=== PATIENT | male | born 1965 | race Caucasian/White ===

== ENCOUNTER → 2017-01-04 | Outpatient (CLI) | payer BC ==
--- NOTE | 2017-01-04 11:59 | MR ---
EXAMINATION TYPE: MR shoulder LT wo con DATE OF EXAM: 01/04/2017 10:35 AM COMPARISON: Plain film 21 December 2016 HISTORY: Left shoulder pain TECHNIQUE: Multiplanar, multisequence imaging of the left shoulder is performed without contrast. FINDINGS: Rotator Cuff: Rotator cuff is torn and retracted, supraspinatus tendon is retracted to the level of t he acromioclavicular joint. Hypertrophic changes present at the acromioclavicular joint Acromioclavicular Joint: Hypertrophic change causes mass effect on the musculotendinous junction of s upraspinatus Glenohumeral Joint: Intact Labrum: No evident tear. Biceps Tendon: Biceps tendon is perched and subluxed anteriorly and medially from the bicipital groov e, fluid signal is present along the biceps tendon. Bone marrow signal: Pseudocysts are present in the greater tuberosity Other: Fluid signal present in the subacromial subdeltoid bursa, there is no pleural effusion. IMPRESSION: Rotator cuff tear with retraction. Subluxation of the biceps tendon from the bicipital groove.
== END | disposition home or self-care (01) ==
LOC: RADMRIMAIN 09:41
PROVIDERS: ATTEND Orthopaedic Surgery
DX: S46.112A Strain of muscle, fascia and tendon of long head of biceps, left arm, initial encounter (principal); M75.102 Unspecified rotator cuff tear or rupture of left shoulder, not specified as traumatic

== ENCOUNTER → 2017-02-09 | Outpatient (CLI) | payer BC ==
[2017-02-09 10:14] LABS: EKG EKG PERFORMED
[2017-02-09 11:03] LABS: Aty Lym Flag Slight; CH 33.4; CHCM 35.3; HCT 40.8 % (39.0-53.0); HDW 2.14; HGB 13.9 gm/dL (13.0-17.5); MCH 32.4 pg (25.0-35.0); MCHC 34.1 g/dL (31.0-37.0); MCV 95.1 fL (80.0-100.0); Mean Platelet Volume 6.3; RBC 4.29 m/uL (4.30-5.90); RDW 12.4 % (11.5-15.5); WBC 6.1 k/uL (3.8-10.6); WBC (Perox) 6.45
[2017-02-09 11:13] LABS: Add Differential Manual Differential
[2017-02-09 11:16] LABS: Manual Review Performed; Nucleated Red Blood Cells 0 /100 WBC (0-0); RBC Morphology Normal; Total Cells Counted 100
[2017-02-09 11:26] LABS: Anion Gap 10 mmol/L; Carbon Dioxide 26 mmol/L (22-30); Chloride 99 mmol/L (98-107); Potassium 4.1 mmol/L (3.5-5.1); Sodium 135 mmol/L (137-145)
== END | disposition home or self-care (01) ==
LOC: LABPAT 09:59
PROVIDERS: ATTEND Orthopaedic Surgery
DX: Z01.812 Encounter for preprocedural laboratory examination (principal); M75.42 Impingement syndrome of left shoulder
CPT/HCPCS: 36415; 80051; 85025; 93005

== ENCOUNTER 2017-03-02 07:51 | Day surgery (SDC) | payer BC ==
[2017-02-24 14:35] VITALS: BMI 24.1
--- NOTE | 2017-03-02 07:49 | P.HPOR ---
History of Present Illness H&P Date: 03/02/17 Chief Complaint: 51-year-old patient seen with progressive left shoulder pain. Past Medical History Past Medical History: Hyperlipidemia, Hypertension, Osteoarthritis (OA) Additional Past Medical History / Comment(s): RIGHT INGUINAL HERNIA History of Any Multi-Drug Resistant Organisms: None Reported Past Surgical History: Heart Catheterization, Hernia Repair Additional Past Surgical History / Comment(s): LEFT INGUINAL HERNIA SURGERY Past Anesthesia/Blood Transfusion Reactions: No Reported Reaction Smoking Status: Current every day smoker - Past Family History Father Family Medical History: Cancer Mother Family Medical History: Cancer Medications and Allergies Home Medications Medication Instructions Recorded Confirmed Type Aspirin 325 mg PO DAILY 09/13/14 02/24/17 History Ezetimibe [Zetia] 10 mg PO HS 09/13/14 02/24/17 History Multivitamins, Thera [Multivitamin] 1 each PO DAILY 09/13/14 02/24/17 History Olmesartan [Benicar] 20 mg PO HS 09/13/14 02/24/17 History Rosuvastatin Calcium [Crestor] 5 mg PO HS 09/13/14 02/24/17 History traMADol HCL [Ultram] 50 mg PO Q4HR PRN 02/24/17 02/24/17 History Allergies Allergy/AdvReac Type Severity Reaction Status Date / Time nitroglycerin Allergy "CARDIAC Verified 02/24/17 14:42 ARREST " round up Allergy SEIZURE Uncoded 02/24/17 14:42 Physical Examination Osteopathic Statement: *. No significant issues noted on an osteopathic structural exam other than those noted in the History and Physical/Consult. Flexion 120, abduction 100, external rotation 40 of weakness, tenderness along the anterior lateral acromion rotator cuff insertion site. Impingement sign +90. Positive drop arm sign. Results X-ray: 12/21/2016type II anterior acromion, clavicle fracture MRI :01/04/2017retracted rotator cuff tear Assessment and Plan Plan: Assessment: Left shoulder impingement with rotator cuff tear Plan: Left shoulder arthroscopy with acromial decompression, probable arthroscopic rotator cuff repair, biceps tenotomy and debridement
[~2017-03-02 07:51] MED LIST: DEXAMETHASONE SOD PHOSPHATE 10 MG/ML 1 ML VIAL IV ONE; HYDROmorphone 1 MG/ML 1 ML SYRINGE IVP PRN; LACTATED RINGERS 1,000 ML IV SCH; ONDANSETRON 4 MG/2 ML VIAL IVP ONE; SCOPOLAMINE 1.5MG/72HR PATCH TRANSDERM ONE; ceFAZolin 1,000 MG in DEXTROSE/WATER 1 50ML.BAG IV ONE
[2017-03-02] MEDS: MIDAZOLAM 2 MG/2 ML VIAL IV PRN ×2 (08:26→08:50)
[2017-03-02] MEDS ORDERED: ROPIVACAINE 5 MG/ML 30 ML VIAL ONE (10:11)
[2017-03-02] MEDS ORDERED: LIDOCAINE 1% INJ 10MG/ML (20 ML MDV) ONE (10:11)
[2017-03-02] MEDS ORDERED: PHENYLEPHRINE-0.9% NACL SYG 1 MG/10 ML SYRINGE ONE (10:11)
[2017-03-02] MEDS ORDERED: PROPOFOL 10 MG/ML 20 ML VIAL IV ONE (10:11)
[2017-03-02] MEDS ORDERED: ROCURONIUM BROMIDE 10 MG/ML 10 ML VIAL IV ONE (10:11)
[2017-03-02] MEDS ORDERED: LIDOCAINE 2%-EPI 1:100,000 20 ML VIAL ONE (10:11)
[2017-03-02] MEDS ORDERED: SUCCINYLCHOLINE CHLORIDE 100 MG/5 ML SYR IV ONE (10:11)
[2017-03-02] MEDS ORDERED: LACTATED RINGERS 1,000 ML IV ONE (11:58)
--- NOTE | 2017-03-02 12:14 | P.OP ---
Date of Procedure: 03/02/17 Preoperative Diagnosis: Left shoulder impingement with rotator cuff tear Postoperative Diagnosis: 1. Left shoulder rotator cuff tear 2. Left shoulder impingement 3. Left shoulder acromioclavicular joint osteoarthritis 4. Left shoulder partial biceps tendon tear 5. Left shoulder superficial labral tear Procedure(s) Performed: 1. Left shoulder arthroscopic rotator cuff repair 2. Left shoulder arthroscopic subacromial decompression 3. Left shoulder arthroscopic Trevor procedure 4. Left shoulder arthroscopic biceps tenotomy 5. Left shoulder arthroscopic debridement labral tear Implants: 6-valeris peek anchors Anesthesia: GETA, regional (Shoulder block) Surgeon: Kaden Lehman Lamp Shade Maker #1: Ernesto Baltazar Estimated Blood Loss (ml): 15 Pathology: none sent Condition: stable Disposition: PACU Indications for Procedure: 51-year-old patient seen with progressive left shoulder pain. After having treatment options discussed, he elected to proceed with arthroscopy. Operative Findings: seer description of procedure Description of Procedure: Patient underwent a shoulder block by department of anesthesia. The patient was then taken to the operative suite. The patient underwent a general anesthetic by the department of anesthesia. The patient was placed into a lateral position and secured. There was appropriate padding of the bony prominence. Left shoulder was then prepped and draped in normal sterile orthopedic fashion. We placed the extremity in 10 pounds of longitudinal traction. A posterior incision was now made for a posterior working portal site. The trocar and cannula were inserted into the glenohumeral joint. Arthroscopy was initiated. Spinal needle was now inserted anteriorly, to ascertain the anterior working portal site. An incision was now made in that area, a trocar was inserted followed by a probe. There was an obvious large retracted rotator cuff tear present. There was partial tearing of the long head biceps tendon. There was superficial tearing of the anterior labrum. There were grade 1, changes of the glenoid. I performed an arthroscopic biceps tenotomy. I debrided the labral tear down to stable tissue. The residual labrum was probed and found to be stable. Instruments now removed from the glenohumeral joint. Utilizing the posterior working portal site, the trocar and cannula were inserted into the subacromial space. Arthroscopy initiated. I made an incision 2 fingerbreadths lateral to the acromion. I introduced my trocar followed by my ArthroCare ablator. I now began ablating thick subacromial bursal tissue, which exposed the undersurface of the anterior acromion. This was diminished subacromial space. There was a very prominent anterior acromion. A motorized bur was introduced and a subacromial decompression was performed. I also excised some osteophytes off the inferior aspect of the distal clavicle. The AC joint was visualized and noted to be fairly arthritic. Our motorized bur was introduced in the anterior portal site and a Trevor procedure was performed without difficulty, decompressing the AC joint nicely. I turned my attention to the rotator cuff. There was a large tear cuff tear. It measured greater than 3 cm. It was retracted but mobile over the footprint. I abraded the footprint with a motorized bur. I created 2 assessory portal sites, one off the anterior lateral acromion any other off the posterior lateral acromion. I now introduced 3 medial row anchors with 2 sutures each. I now passed all 12 limbs of suture through good bites of rotator cuff tendon. I now introduced my 3 lateral row anchors, crisscrossing the sutures and compressing the tendon along the footprint very nicely. All residual suture limbs were clipped. The repair was probed and found to be stable. I injected 1 mL of Allogen intra-articular. Instruments now removed from the portal sites. All portal sites were approximated with nylon suture. Sterile dressings were applied followed by a shoulder immobilizer. Maynor BAZZI assisted with the procedure. The patient was awakened, transferred to a bed, and taken to recovery in stable condition.
[2017-03-02 12:16] VITALS: TEMP 97.2
[2017-03-02 13:11] VITALS: RESP 18
[2017-03-02 13:56] VITALS: BP 149/80; PULSE 89
== END 2017-03-02 14:37 | disposition home or self-care (01) ==
LOC: OR 07:51
PROVIDERS: ATTEND Orthopaedic Surgery
DX: M75.102 Unspecified rotator cuff tear or rupture of left shoulder, not specified as traumatic (principal); M75.42 Impingement syndrome of left shoulder; M19.012 Primary osteoarthritis, left shoulder; S46.112A Strain of muscle, fascia and tendon of long head of biceps, left arm, initial encounter; S43.402A Unspecified sprain of left shoulder joint, initial encounter; X58.XXXA Exposure to other specified factors, initial encounter; E78.5 Hyperlipidemia, unspecified; I10 Essential (primary) hypertension; F17.200 Nicotine dependence, unspecified, uncomplicated; Z79.82 Long term (current) use of aspirin; Z79.899 Other long term (current) drug therapy; Z88.8 Allergy status to other drugs, medicaments and biological substances; Z91.048 Other nonmedicinal substance allergy status
CPT/HCPCS: 64415; 29824; 29826; 29827; C1894; C1713 ×2; C1765; J2250; J1100; J2405; J2001; J0690; J2795; J2370; J0330; J2704

== ENCOUNTER 2017-06-02 11:00 | Day surgery (SDC) | payer BC ==
[2017-05-31 11:24] VITALS: BMI 22.4
[~2017-06-02 11:00] MED LIST changes: +HEPARIN SODIUM,PORCINE 5,000 UNIT/ML 1 ML VIAL SQ ONE; +HYDROmorphone 0.5 MG/0.5 ML SYRINGE IVP PRN; -HYDROmorphone 1 MG/ML 1 ML SYRINGE IVP PRN; -LACTATED RINGERS 1,000 ML IV SCH; +MIDAZOLAM 2 MG/2 ML VIAL IV PRN; -ceFAZolin 1,000 MG in DEXTROSE/WATER 1 50ML.BAG IV ONE; +ceFAZolin 2 GM in SODIUM CHLORIDE 0.9% 100 ML IVPB ONE
[2017-06-02] MEDS ORDERED: LIDOCAINE 1% 20 ML VIAL (10MG/ML) FOR IV START INTRADERMA ONE (11:50)
[2017-06-02] MEDS: LACTATED RINGERS 1,000 ML IV SCH ×2 (11:54→12:52)
--- NOTE | 2017-06-02 12:41 | P.GSHP ---
History of Present Illness H&P Date: 06/02/17 Chief Complaint: right inguinal hernia Patient was seen in the office in February. He has complaints of a bulge in the right groin. He has a history of previous left inguinal hernia repair. Mild discomfort at times. Increasing in size. Pain does radiate to the testicle at times. He first noticed the hernia in September. Past Medical History Past Medical History: Hyperlipidemia, Hypertension, Osteoarthritis (OA) Additional Past Medical History / Comment(s): RIGHT INGUINAL HERNIA History of Any Multi-Drug Resistant Organisms: None Reported Past Surgical History: Heart Catheterization, Hernia Repair, Orthopedic Surgery Additional Past Surgical History / Comment(s): LEFT INGUINAL HERNIA SURGERY, Rt and Lt rotator cuff repair,rt knee repair ACL Past Anesthesia/Blood Transfusion Reactions: No Reported Reaction Smoking Status: Current every day smoker - Past Family History Father Family Medical History: Cancer Mother Family Medical History: Cancer Medications and Allergies Home Medications Medication Instructions Recorded Confirmed Type Aspirin 81 mg PO DAILY 09/13/14 05/31/17 History Ezetimibe [Zetia] 10 mg PO HS 09/13/14 05/31/17 History Multivitamins, Thera [Multivitamin] 1 each PO DAILY 09/13/14 05/31/17 History Olmesartan [Benicar] 20 mg PO HS 09/13/14 05/31/17 History Rosuvastatin Calcium [Crestor] 5 mg PO HS 09/13/14 05/31/17 History Allergies Allergy/AdvReac Type Severity Reaction Status Date / Time nitroglycerin Allergy "CARDIAC Verified 06/02/17 11:20 ARREST " round up Allergy SEIZURE Uncoded 06/02/17 11:20 Surgical - Exam Vital Signs Temp Pulse Resp BP Pulse Ox 99.3 F 84 18 132/76 95 06/02/17 11:26 06/02/17 11:26 06/02/17 11:26 06/02/17 11:26 06/02/17 11:26 Physical exam: General: Well-developed, well-nourished HEENT: Normocephalic, sclerae nonicteric Abdomen: Nontender, nondistended, moderate writing or hernia, no palpable left internal hernia, both testes normal Extremities: No edema Neuro: Alert and oriented Assessment and Plan (1) Inguinal hernia Narrative/Plan: Options discussed with detail to the patient. We'll proceed with laparoscopic repair writing or hernia. The da Gordon assistance was discussed. Risks of bleeding, infection, recurrence, pain, bladder and bowel injury, conversion to an open procedure were discussed. He understands and wishes to proceed. Status: Acute
[2017-06-02] MEDS ORDERED: PROPOFOL 10 MG/ML 20 ML VIAL IV ONE (12:46)
[2017-06-02] MEDS ORDERED: KETOROLAC 30 MG/ML 1 ML VIAL ONE (12:46)
[2017-06-02] MEDS ORDERED: MIDAZOLAM 2 MG/2 ML VIAL ONE (12:46)
[2017-06-02] MEDS ORDERED: fentaNYL (PF) 50 MCG/ML 2 ML AMP ONE (12:46)
[2017-06-02] MEDS ORDERED: ROCURONIUM BROMIDE 10 MG/ML 10 ML VIAL IV ONE (12:46)
[2017-06-02] MEDS ORDERED: HYDROmorphone (PF) 1 MG/ML ONE (12:46)
[2017-06-02] MEDS ORDERED: BUPIVACAINE (PF) 0.25% 30 ML VIAL SQ ONE (13:24)
[2017-06-02] MEDS ORDERED: LACTATED RINGERS 1,000 ML IV ONE (13:36)
[2017-06-02] MEDS ORDERED: NALOXONE 0.4 MG/ML 1 ML VIAL IV PRN (14:48)
--- NOTE | 2017-06-02 14:52 | P.OP ---
Date of Procedure: 06/02/17 Procedure(s) Performed: PREOPERATIVE DIAGNOSIS: Right inguinal hernia POSTOPERATIVE DIAGNOSIS: Same PROCEDURE: Laparoscopic repair right inguinal hernia with the da Gordon robot assistance SURGEON: Farooq EBL: Minimal ANESTHESIA: General COMPLICATIONS: None OPERATIVE PROCEDURE: Patient was placed in the operating table in the supine position. The patient was then placed in lithotomy. The abdomen was prepped and draped in usual sterile fashion. A small curvilinear supraumbilical incision was made. The fascia was retracted anteriorly with Bunny forceps. The Veress needle was inserted. The saline drop test was normal. Insufflation took place to 15 mmHg. A 12 mm trocar was then inserted. 2 additional 8 mm trochars were placed in the right upper quadrant and left upper quadrant under visualization. The robotic arms were then brought in and docked into place. The fenestrated bipolar was used in the left arm and the laparoscopic rosalio was utilized in the right arm. A 30 12 mm scope was used in the up position. The peritoneal cavity was inspected. Inspection revealed a indirect hernia of moderate size. The peritoneum was incised superior to the internal inguinal ring and a horizontal fashion. Following that careful dissection of the preperitoneal space took place. This took place using both electrocautery and sharp dissection and primarily blunt dissection. Visualization of the pubic tubercle and Boris's ligament took place medially. Full dissection took place laterally as well. The patient's hernia was as described an indirect hernia. The hernia sac was fully dissected. Once we had adequate space the 15 x 10 progrip mesh was advanced into the preperitoneal space and flattened out appropriately to cover all potential hernia sites. No sutures were used. The peritoneal defect was then closed using a locking 2-0 VLok suture. The pneumoperitoneum was then evacuated. The fascia at the 12 mm site was closed using the Harish Guzman technique and a 0 Vicryl stitch. The skin of all 3 sites was closed using a 4-0 Monocryl stitch. Steri-Strips and sterile dressings were applied. DISPOSITION: Stable to recovery room
[2017-06-02 14:58] VITALS: TEMP 98.5
[2017-06-02 15:11] VITALS: RESP 16
[2017-06-02 15:37] VITALS: PULSE 74
[2017-06-02] MEDS ORDERED: traMADol 50 MG TAB PO ONE (15:45)
[2017-06-02 16:05] VITALS: BP 124/72
== END 2017-06-02 16:48 | disposition home or self-care (01) ==
LOC: OR 11:00
PROVIDERS: ATTEND Surgery
DX: K40.90 Unilateral inguinal hernia, without obstruction or gangrene, not specified as recurrent (principal); I10 Essential (primary) hypertension; E78.5 Hyperlipidemia, unspecified; M19.90 Unspecified osteoarthritis, unspecified site; F17.200 Nicotine dependence, unspecified, uncomplicated; Z88.8 Allergy status to other drugs, medicaments and biological substances; Z79.82 Long term (current) use of aspirin; Z79.899 Other long term (current) drug therapy; Z80.9 Family history of malignant neoplasm, unspecified
CPT/HCPCS: 49650; C1781; J2250; J1644; J1100; J0690; J2405; J3010; J1885; J1170; J2704

== ENCOUNTER → 2017-12-24 | Outpatient (CLI) | payer BC ==
--- NOTE | 2017-12-24 16:55 | XR ---
EXAMINATION TYPE: XR chest 2V DATE OF EXAM: 12/24/2017 COMPARISON: None HISTORY: 52-year-old male with cough TECHNIQUE: Frontal and lateral views FINDINGS: The cardiomediastinal silhouette, aorta, and pulmonary vasculature are within normal limits. Lungs an d pleural spaces are clear. IMPRESSION: No acute cardiopulmonary process.
== END | disposition home or self-care (01) ==
LOC: LABWHC1 11:12
PROVIDERS: ATTEND Internal Medicine
DX: R05 Cough (principal)
CPT/HCPCS: 71046

== ENCOUNTER 2022-09-25 07:33 | Emergency (ER) | payer BC ==
[2022-09-25 07:49] VITALS: PULSE 74; RESP 18
[2022-09-25] MEDS ORDERED: HYDROcodone/APAP 5-325MG 1 EACH TAB PO STA (07:57)
[2022-09-25] MEDS ORDERED: KETOROLAC 15 MG/ML 1 ML VIAL IM STA (07:57)
[2022-09-25] MEDS ORDERED: LIDOCAINE 5% PATCH TOPICAL ONE (07:57)
--- NOTE | 2022-09-25 08:04 | ED ---
Back Pain HPI - General Chief Complaint: Back Pain/Injury Stated Complaint: back pain Time Seen by Provider: 09/25/22 07:36 Source: patient, family, RN notes reviewed Limitations: no limitations - History of Present Illness Initial Comments: This is a 56-year-old male who presents to the emergency department for back pain. Patient states that last night, he tripped and fell down 5 basement steps, landing on the right side of his lower back. Denies hitting his head, any loss of consciousness, or taking any blood thinners. Denies any loss of bowel/bladder control or saddle anesthesia. He took 800 mg of ibuprofen last night, and states that it helped and he was able to fall asleep. Denies any fevers, chills, sore throat, cough, dyspnea, chest pain, palpitatio ns, abdominal pain, nausea, vomiting, diarrhea, or headaches. MD Complaint: back pain, back injury, fall Onset/Timin -: days(s) Place: home Radiation: none Treatments Prior to Arrival: NSAIDS - Related Data Home Medications Medication Instructions Recorded Confirmed Aspirin 81 mg PO DAILY 09/13/14 05/31/17 Ezetimibe [Zetia] 10 mg PO HS 09/13/14 05/31/17 Multivitamins, Thera [Multivitamin] 1 each PO DAILY 09/13/14 05/31/17 Olmesartan [Benicar] 20 mg PO HS 09/13/14 05/31/17 Rosuvastatin Calcium [Crestor] 5 mg PO HS 09/13/14 05/31/17 Previous Rx's Medication Instructions Recorded traMADol HCl [Ultram] 50 mg PO Q6H PRN #30 tab 06/02/17 Lidocaine 5% Patch [Lidoderm 5% 1 patch TOPICAL DAILY PRN #30 patch 09/25/22 Patch] traMADol HCl [Ultram] 50 mg PO Q4HR PRN 3 Days #18 tab 09/25/22 Allergies Allergy/AdvReac Type Severity Reaction Status Date / Time nitroglycerin Allergy "CARDIAC Verified 09/25/22 07:49 ARREST " round up Allergy SEIZURE Uncoded 09/25/22 07:49 Review of Systems ROS Statement: Those systems with pertinent positive or pertinent negative responses have been documented in the HPI. ROS Other: All systems not noted in ROS Statement are negative. Past Medical History Past Medical History: Hyperlipidemia, Hypertension, Osteoarthritis (OA) Additional Past Medical History / Comment(s): RIGHT INGUINAL HERNIA, T12 fracture, History of Any Multi-Drug Resistant Organisms: None Reported Past Surgical History: Heart Catheterization, Hernia Repair Additional Past Surgical History / Comment(s): LEFT INGUINAL HERNIA SURGERY Past Anesthesia/Blood Transfusion Reactions: No Reported Reaction Past Psychological History: No Psychological Hx Reported Smoking Status: Current every day smoker Past Alcohol Use History: Occasional Past Drug Use History: None Reported - Past Family History Father Family Medical History: Cancer Mother Family Medical History: Cancer General Exam Limitations: physical limitation General appearance: alert, in distress Head exam: Present: atraumatic, normocephalic, normal inspection Respiratory exam: Present: normal lung sounds bilaterally. Absent: respiratory distress, wheezes, rales, rhonchi, stridor Cardiovascular Exam: Present: regular rate, normal rhythm, normal heart sounds. Absent: systolic murmur, diastolic murmur, rubs, gallop, clicks Back exam: Present: other (Tenderness to palpation of the right mid to lower back. No overlying ecchymosis or swelling. Limited range of motion secondary to pain.) Neurological exam: Present: alert, oriented X3, CN II-XII intact Psychiatric exam: Present: normal affect, normal mood Skin exam: Present: warm, dry, intact, normal color. Absent: rash Course Vital Signs 09/25/22 09/25/22 07:43 09:29 Temperature 97.5 F L 98.0 F Pulse Rate 74 74 Respiratory 18 18 Rate Blood Pressure 147/79 130/81 O2 Sat by Pulse 97 97 Oximetry Medical Decision Making - Medical Decision Making This is a 56-year-old male who presents to the emergency department for back pain. Was pt. sent in by a medical professional or institution? @ -No Did you speak to anyone other than the patient for history? @ -His Did you review nursing and triage notes? @ -Yes, and I agree, it is accurate with regards to the patient's symptoms. Were old charts reviewed? @ -No Differential Diagnosis? @ -Differential Back Pain: Strain, contusion, fracture, disc herniation, DJD, this is not meant to be an all-inclusive list. X-rays interpreted by me (1pt min.)? @ -X-ray of the thoracic and lumbar spine obtained. My interpretation identifies no acute fractures. What testing was considered but not performed? (CT, X-rays, U/S, labs)? Why? @ -None What meds were considered but not given? Why? @ -None Did you discuss the management of the patient with other professionals? @ -No Did you reconcile home meds? @ -No Was smoking cessation discussed for >3mins.? @ -No Was critical care preformed (if so, how long)? @ -No Were there social determinants of health that impacted care today? How? (Homelessness, low income, unemployed, alcoholism, drug addiction, transportatio n, low edu. Level, literacy, decrease access to med. care, group home, rehab)? @ -No Was there de-escalation of care discussed even if they declined? (Discuss DNR or withdrawal of care, Hospice)? @ -No What co-morbidities impacted this encounter? (DM, HTN, Smoking, COPD, CAD, Cancer, CVA, Hep., AIDS, mental health diagnosis, sleep apnea, morbid obesity)? @ -None Was patient admitted / discharged? @ -Discharged. X-rays of the thoracic and lumbar spine obtained revealing no acute irregularities. He was given IM toradol, [place], and a lidocaine patch was applied. He had only minor improvement in symptoms following medication administration. Given the significant pain despite medications, he was given a prescription for tramadol and lidocaine patches with dosing instructions reviewed. He states that he already has Zofran and ibuprofen 800 mg at home. Advised alternating with ibuprofen and Tylenol and taking the tramadol sparingly when his pain is the most severe. He can take Zofran with this if the tramadol makes him nauseous. Patient is instructed to apply ice to the areas of pain for 10-15 minutes every 2-3 hours for the first 2-3 days followed by heat there afterwards. He is also advised to follow-up with his orthopedic provider for reevaluation of symptoms. Signs and symptoms of cauda equina syndrome reviewed, including loss of bowel/bladder control or saddle anesthesia, which necessitate the need for him to return to the emergency department immediately. Undiagnosed new problem with uncertain prognosis? @ -None Drug Therapy requiring intensive monitoring for toxicity (Heparin, Nitro, Insulin, Cardizem)? @ -None Were any procedures done? @ -None Diagnosis/symptom? @ -Right back pain Acute, or Chronic, or Acute on Chronic? @ -Acute Uncomplicated (without systemic symptoms) or Complicated (systemic symptoms)? @ -Uncomplicated Side effects of treatment? @ -None Exacerbation, Progression, or Severe Exacerbation] @ -Not applicable Poses a threat to life or bodily function? @ -Yes, the pain is making it difficult to function. Return precautions reviewed in depth, the patient is instructed to return to the emergency department with any new, worsening, or concerning symptoms. Patient verbalized understanding. This case was discussed in detail with the attending ED physician, Dr. Roland. Presentation, findings, and treatment plan discussed in detail as well. - Radiology Data Radiology results: report reviewed, image reviewed Disposition Clinical Impression: Back contusion, Fall Disposition: HOME SELF-CARE Instructions (If sedation given, give patient instructions): Acute Low Back Pain (ED) Additional Instructions: Return to the emergency department with any new, worsening, or concerning symptoms. Alternate with ibuprofen and Tylenol for pain relief and take the tramadol sparingly when your pain is the most severe. You can use the lidocaine patches daily as needed. Apply ice for 15-20 minutes every 2-3 hours for the first 2-3 days followed by heat there afterwards. Contact orthopedics as listed below for a follow-up appointment. Follow up with your primary care provider in 1-2 days. Prescriptions: Lidocaine 5% Patch [Lidoderm 5% Patch] 1 patch TOPICAL DAILY PRN #30 patch PRN Reason: Pain traMADol HCl [Ultram] 50 mg PO Q4HR PRN 3 Days #18 tab PRN Reason: Pain Is patient prescribed a controlled substance at d/c from ED?: Yes When asked, does pt state using other controlled substances?: Yes If prescribed controlled substance>3 days was MAPS reviewed?: Prescribed <3 Days Referrals: Hugo Daigle MD [Primary Care Provider] - 1-2 days Kaden Lehman DO [Doctor of Osteopathic Medicine] - 1-2 days
--- NOTE | 2022-09-25 08:49 | XR ---
EXAMINATION TYPE: XR thoracic spine complete, XR lumbar spine 2 or 3V DATE OF EXAM: 09/25/2022 8:42 AM INDICATION: Patient age:Male; 56 years old; Reason for study: Mid to lower back pain after fall; COMPARISON: None TECHNIQUE: 2 views of the thoracic and lumbar spine in Frontal and lateral projections. FINDINGS: Multilevel disc degeneration changes throughout the spine with osteophyte formation. There is minimal scoliosis changes present. There is wedging of the T12 vertebrae and to lesser extent the L1 vertebrae. Scattered disc space narrowing. Mild retrolisthesis L3 on L4. IMPRESSION: 1. No obvious acute fracture. 2. Wedging of T12 consistent with history of prior fracture. 3. Mild scoliosis 4. Mild disc degeneration.
[2022-09-25 09:31] VITALS: BP 130/81; TEMP 98
== END 2022-09-25 09:33 | disposition home or self-care (01) ==
LOC: EC 07:33
DX: S30.0XXA Contusion of lower back and pelvis, initial encounter (principal); I10 Essential (primary) hypertension; E78.5 Hyperlipidemia, unspecified; M19.90 Unspecified osteoarthritis, unspecified site; F17.200 Nicotine dependence, unspecified, uncomplicated; Z79.82 Long term (current) use of aspirin; Z79.899 Other long term (current) drug therapy; Z88.8 Allergy status to other drugs, medicaments and biological substances; W10.9XXA Fall (on) (from) unspecified stairs and steps, initial encounter
CPT/HCPCS: 72072; 72100; 99283; 96372; J1885

== ENCOUNTER → 2023-08-16 | Outpatient (CLI) | payer BC ==
--- NOTE | 2023-08-22 22:16 | CTL ---
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 COMPARISON: None. Baseline study. TECHNIQUE: CT scan of the chest obtained without contrast from approximately the lung apices through the upper abdomen. Axial, coronal and sagittal reformatted images were obtained. Low dose technique w as utilized for nodule screening purposes. CT DLP: 63.5 mGycm, Automated exposure control for dose reduction was used. CT Contrast: Contrast used: None Oral contrast used: None FINDINGS: Lack of intravenous contrast and low dose technique limits the evaluation of the vascular and soft ti ssue structures. LUNGS: No evidence of pulmonary fibrosis. No evidence of focal consolidation, pneumothorax or pleural effusion. Mild dependent opacities in the lung bases consistent with subsegmental atelectasis. Mild biapical scarring. Mild emphysematous changes along the lung apices. Nodules: RUL: A 2.6 mm vague nodular density in the subpleural right upper lobe image 142 series 4. RML: None RLL: A 3.6 mm nodular density in the right lower lobe image 205. MEG: None LLL: None AIRWAY: Patent and unremarkable. LOWER NECK: No significant findings. HEART AND VASCULATURE: Heart size upper normal.. No significant coronary artery calcifications. Mild calcification of the aortic valve and along the arch including the origins of the right cephalic and left subclavian arteries. Ascending aorta appears mildly ectatic measuring up to approximately 3.8 cm. Descending aorta is 2.5 cm. Pulmonary trunk is not enlarged, measures approximately 2.6 cm. MEDIASTINUM: No gross evidence of adenopathy. Suggestion of mild/moderate thickening of the esophagea l wall. SOFT TISSUES/LYMPH NODES: Unremarkable soft tissues. No axillary adenopathy. UPPER ABDOMEN: No significant findings. A few calcifications of the upper abdominal aorta including t he proximal celiac artery. MUSCULOSKELETAL: Mild disc degeneration changes are present throughout the thoracolumbar spine. Mild/ moderate chronic compression fracture deformity T12 with anterior wedge morphology, similar to prior spine CT 10/01/2022. Small sclerotic marginated Schmorl's nodes at T5, T6, T7 appear similar. Healed ri ght posterior rib fractures. Moderate degenerative changes the glenohumeral joints with subcortical c ystic changes in both humeral heads. No acute osseous abnormality. IMPRESSION: 1. No clinically significant pulmonary nodules. 2. Mild biapical pulmonary emphysematous changes. 3. Mild aortic calcifications, including the aortic valve. 4. Suggestion of mild/moderate thickening of the esophageal wall, correlate for possible esophagitis (with neoplasm unable to be excluded). CT LUNG RAD AND CT CHEST RECOMMENDATION: Lung-Rad 1 Negative: Continue annual screening with LDCT in 12 months. C Modifier (Personal history of lung cancer?): No. S Modifier (Other clinically significant or potentially significant findings?): Yes. Other findings include: Thickening of the esophageal wall. Recommend smoking cessation (if current smoker), or continuation of smoking cessation (if prior smoke r). Annual screening for lung cancer with low-dose computed tomography is recommended in adults ages 55 to 77 years who have a 30 pack-year smoking history and currently smoke or have quit within the pa st 15 years. Screening should be discontinued once a person has not smoked for 15 years or develops a health problem that substantially limits life expectancy or the ability or willingness to have curat bora lung surgery. Lung rads 2021 [email or web address]
== END | disposition home or self-care (01) ==
LOC: RADCTMAIN 13:27
PROVIDERS: ATTEND Family Medicine
DX: Z12.2 Encounter for screening for malignant neoplasm of respiratory organs (principal); J43.9 Emphysema, unspecified; I70.0 Atherosclerosis of aorta; Z87.891 Personal history of nicotine dependence
CPT/HCPCS: 71271

== ENCOUNTER → 2024-02-23 | Outpatient (CLI) | payer OTHER ==
--- NOTE | 2024-02-23 10:19 | MR ---
EXAMINATION TYPE: MR shoulder LT wo con DATE OF EXAM: 02/23/2024 COMPARISON: Radiograph 02/10/2024 and prior MRI 01/04/2017 HISTORY: 58-year-old male M25.512 Left shoulder pain for 5 years, history of surgery TECHNIQUE: Multiplanar, multisequence imaging of the left shoulder is performed without contrast. FINDINGS: The intracapsular portion of the long head biceps tendon is not clearly identified. It could be parti ally torn and very thin or there could have been previous tenotomy and tenodesis at the upper bicipit al groove. Clinically correlate. Prominent heterogeneity of the subscapularis tendon. The majority of the tendon remains intact. Evidence of interval double row suture anchors for supraspinatus and infraspinatus tendon repair. The re is prominent postsurgical heterogeneity of the tendons and some portions are particularly thin suc h as a 6 x 8 mm portion of mid supraspinatus tendon just proximal to the footprint. However, on sagit robson sequence, there appears to be some retained volume here and we suspect postsurgical fenestrations and thinning rather than a keegan retear. Minimal fatty streaks within both infraspinatus and teres minor muscles. Mild degenerative change at the AC joint. Trace fluid within the subacromial bursa. There is a 1.7 x 1.4 x 0.5 cm multilocular cyst along the superior aspect of the glenoid with a tear extending just over 90 degrees along the posterior labrum. Mild diffuse cartilage thinning and irregularity/along the superior aspect of the glenohumeral joint, progressed from 2017. No significant joint effusion. No Hill-Sachs deformity or os acromiale. No suspicious bone marrow replacement. IMPRESSION: 1. Interval supraspinatus and infraspinatus tendon repairs. Areas of prominent postsurgical heterogen eity and thinning such as the mid supraspinatus tendon but without keegan re-tear at this time. Only m inimal fatty streaks within the infraspinatus muscle belly. 2. Large tear of the posterior glenoid labrum with the development of a 1.7 cm multilocular ganglion cyst along the superior aspect of the glenoid. 3. Mild glenohumeral joint OA, progressed from 2017. 4. Nonvisualization of the intracapsular portion of the long head biceps tendon. It could either be t orn and scarred down in the bicipital groove or there could have been previous tenotomy with tenpaulino heck.
== END | disposition home or self-care (01) ==
LOC: RADMRIMAIN 06:29
PROVIDERS: ATTEND Orthopaedic Surgery
DX: M19.012 Primary osteoarthritis, left shoulder (principal); M67.412 Ganglion, left shoulder

== ENCOUNTER → 2024-08-17 | Outpatient (CLI) | payer OTHER ==
--- NOTE | 2024-08-17 11:20 | CTL ---
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 TECHNIQUE: Low dose computed tomography scan was performed through the chest at 1 mm thick sections a nd reconstructed images in multiple planes at 1 mm and [address] DLP: 107.[address] CTDI: 2.8 mGy Automated exposure control for dose reduction was used. CT DIAGNOSTIC QUALITY: Satisfactory FINDINGS: Nodules: Stable right lower lobe 3.9 mm nodular density (series 4, image 24). Stable 2 mm right upper lobe nodular density (series 4, and 140). No new or enlarging pulmonary nodules. LUNGS: COPD: Severity: Mild Fibrosis: Severity: None Lymph nodes: None Other findings: Minimal dependent bilateral lower lobe subsegmental atelectasis. Mild linear scarring within the right middle lobe medially. RIGHT PLEURAL SPACE: Effusion: None Calcification: None Thickening: None Pneumothorax: None LEFT PLEURAL SPACE: Effusion: None Calcification: None Thickening: None Pneumothorax: None HEART: Heart Size: Normal Coronary Calcification: None Pericardial Effusion: None OTHER FINDINGS: Upper abdomen: None Bony thorax: Redemonstration of anterior wedging of the T12 vertebral body. Mild multilevel degenerat bora disc disease. Healed posterior right rib fractures redemonstrated. Bilateral shoulder arthropathy . Supraclavicular region: None Other: Diffuse circumferential wall thickening of the esophagus measuring up to 7 mm redemonstrated. IMPRESSION: 1. Couple of stable pulmonary nodular densities measuring less than 4 mm. No new or enlarging pulmon jack nodules. 2. Mild COPD changes. 3. Similar circumferential wall thickening of the esophagus possibly related to esophagitis. CT LUNG RAD AND CT CHEST RECOMMENDATION: Lung-Rad 2 Benign Appearance or Behavior: Continue annual sc reening with LDCT in 12 months. S Modifier (other clinically significant findings): None [facility], , 08/17/2024 11:18 AM
== END | disposition home or self-care (01) ==
LOC: RADCTMAIN 10:43
PROVIDERS: ATTEND Family Medicine
DX: Z12.2 Encounter for screening for malignant neoplasm of respiratory organs (principal); J44.9 Chronic obstructive pulmonary disease, unspecified; Z87.891 Personal history of nicotine dependence
CPT/HCPCS: 71271